=== PATIENT | female | born 1970 | race Caucasian/White ===

== ENCOUNTER 2017-08-05 11:46 | Emergency (ER) | payer BC ==
--- NOTE | 2017-08-05 12:27 | CPEKG ---
Heart Rate: 102 RR Interval: 588 P-R Interval: 144 QRSD Interval: 96 QT Interval: 368 QTC Interval: 480 P [place]: 64 QRS [place]: -28 T Wave [place]: 109 EKG Severity - ABNORMAL ECG - EKG Impression: SINUS TACHYCARDIA EKG Impression: PROBABLE LVH WITH SECONDARY REPOL ABNRM EKG Impression: ANTERIOR Q WAVES, POSSIBLY DUE TO LVH Electronically Signed By: Jacqueline Becerra 05-Aug-2017 20:44:44
[2017-08-05] MEDS ORDERED: TRANEXAMIC ACID 1,000 MG/10 ML VIAL ONE (12:37)
[2017-08-05] MEDS ORDERED: ASPIRIN 81 MG CHEWABLE TAB PO ONE (13:00)
--- NOTE | 2017-08-05 13:04 | EDPHY ---
H & P Stated Complaint: mid sternal cp x 2 days hx fenoral stents on plavix/anxiety Time Seen by Provider: 08/05/17 12:42 HPI/ROS: CHIEF COMPLAINT: Chest pain HISTORY OF PRESENT ILLNESS: This is a 46-year-old female with a history of bilateral femoral artery stents, placed in 2014 because of arterial occlusion. She is on Plavix as a result. She presents today with 2-3 days of substernal chest pressure. She describes it is a mild uncomfortable sensation. Today while at work she became short of breath after going up and down 8 stairs. She was sweaty and thought that she might collapse. She also feels that her thinking is somewhat foggy. In general, she states that she just does not"feel right". She smokes 1/2 pack of cigarettes daily. She has no history of hypertension or diabetes. She has a niece who at age 34 and reportedly had coronary artery disease; she in her sleep. Her mother at age 63 of unknown causes. REVIEW OF SYSTEMS: A ten point review of systems was performed and is negative with the exception of the items mentioned in the HPI and the following: She also reports diffuse joint pain which has been longstanding. Past medical history: Arterial occlusion Anxiety and depression Past surgical history: Bilateral femoral artery stents, partial hysterectomy, section. Family history: Mother at age 63 for unknown reasons but was reportedly in poor health with diabetes--and noncompliant with her medications. A niece who at age 34, possibly for causes related to coronary artery disease, but details unknown. 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 She smokes 1/2 pack of cigarettes daily. She does not use alcohol or illicit drugs. General Appearance: Alert. Vital signs reviewed. Intermittently tearful. Blood pressure 152/90. Eyes: Pupils equal and round, no conjunctival injection, no discharge. Anicteric. ENT, Mouth: Mucous membranes are moist, no oropharyngeal erythema or edema. Neck: No lymphadenopathy, supple. Respiratory: Lungs are clear to auscultation; no wheezes, rales, or rhonchi. Cardiovascular: Regular, mildly tachycardic; no murmur, rub, or gallop. Gastrointestinal: Abdomen is obese, soft and nontender, no masses or organomegaly, bowel sounds normal. Skin: Warm and dry, no rashes on exposed skin, normal color. Back: Nontender to palpation over the thoracolumbar spine. No CVAT. Extremities: No lower extremity edema, no calf tenderness or swelling. No joint swelling, warmth, or erythema. Neurological: Alert and oriented. Moving all four extremities easily and equally. Psychiatric: Tearful and anxious affect. - Personal History LMP (Females 10-55): Hysterectomy Current Tetanus/Diphtheria Vaccine: Yes - Medical/Surgical History Hx Asthma: No Hx Chronic Respiratory Disease: No Hx Diabetes: No Hx Cardiac Disease: No Hx Renal Disease: No Hx Cirrhosis: No Hx Alcoholism: No Hx HIV/AIDS: No Hx Splenectomy or Spleen Trauma: No Other PMH: hysterectomy/femoral stents - Social History Smoking Status: Current every day smoker Constitutional: Initial Vital Signs Temperature (C) 36.7 C 08/05/17 11:49 Heart Rate 99 08/05/17 11:49 Respiratory Rate 17 08/05/17 11:49 Blood Pressure 152/90 H 08/05/17 11:49 O2 Sat (%) 95 08/05/17 11:49 O2 Delivery Mode Room Air Allergies/Adverse Reactions: Penicillins Allergy (Verified 08/05/17 11:48) Home Medications: Medication Instructions Recorded Aspirin 325 mg (*) 08/05/17 Plavix 08/05/17 Venlafaxine Xr 08/05/17 Vistaril 08/05/17 Medical Decision Making - Diagnostics EKG Interpretation: EKG. Sinus tachycardia with a rate just over 100. LVH, Q-waves are noted anteriorly. No EKG for comparison. ED Course/Re-evaluation: Chest x-ray, EKG, labs reviewed. She has had this chest discomfort for at least 2 days and has a normal troponin. I doubt that it's origin is cardiac.She and I reviewed her HEART score. She has a score of 3, placing her in the low risk category with a less than 1.7% risk of a major acute coronary event within the next 6 weeks. She is reassured by this information and is comfortable following up with her primary care physician. No evidence of pulmonary infection. D-dimer is normal, making PE unlikely. She is not hypoxic. Throughout her stay in the emergency department she has been emotionally labile , crying on and off. She expresses some concern about her health but particularly states that she has diffuse joint pain. This is not a new problem for her. She has had ft and leg discomfort since her femoral artery stenting. There is no evidence today of vascular occlusion. Her extremities are warm and well perfused. She was taking Naprosyn for a but discontinued this medication out of concern that it might be interacting with the Plavix that she takes. The Naprosyn was working well for her. She did take one last night because she was having joint pain. In retrospect, she feels that the pain that she has been feeling in her mid chest is related to the diffuse joint pains that she has been experiencing. She was given a dose of Toradol in the emergency department, 15 mg IV. She understands that NSAIDs are not recommended in conjunction with Plavix. The Naprosyn was initially recommended by a physician that she had been seeing because of joint pain. She will discuss pain control with her primary care physician. I reviewed all of the laboratory and x-ray findings with her. I do not have a previous EKG for comparison. I made an effort to obtain one from the hospital in [place] but was unsuccessful. She does have evidence of LVH on her EKG today. Differential Diagnosis: Chest pain including but not limited to myocardial ischemia, pulmonary embolus, chest wall pain, pleural inflammation and pulmonary infectious causes. - Data Points Laboratory Results: Laboratory Results 08/05/17 12:45 08/05/17 12:45 Medications Given: Discontinued Medications Aspirin (Aspirin) 324 mg PO EDNOW ONE Stop: 08/05/17 13:01 Last Admin: 08/05/17 13:22 Dose: 324 mg Ketorolac Tromethamine (Toradol) 15 mg IVP EDNOW ONE Stop: 08/05/17 15:15 Last Admin: 08/05/17 15:29 Dose: 15 mg Departure - Departure Disposition: Home, Routine, Self-Care Clinical Impression: Chest pain Qualifiers: Chest pain type: other chest pain Qualified Code(s): R07.89 - Other chest pain ; R07.8 - Other chest pain Condition: Good Instructions: Chest Pain (ED), Hip Pain (ED) Additional Instructions: Follow up with your care provider, Dr. Haynes, in [facility]. Call his office on Tuesday and let him know that you were seen in the emergency department. Talk with him about your joint pain. If you have any new or concerning symptoms--worsening shortness of breath, persistent or changing chest pain--you should be re-evaluated. I am also giving you a referral to a local primary care physician in case you need it. Referrals: Jay Wolfe MD [Medical Doctor] - As per Instructions
[2017-08-05 13:06] LABS: PLATELET COUNT 375 10^3/uL (150-400)
[2017-08-05 13:15] LABS: INR 0.9 (0.83-1.16); PROTIME(PATIENT) 12.4 SEC (12.0-15.0)
[2017-08-05] MEDS ORDERED: KETOROLAC 30 MG/1 ML SDV IVP ONE (15:14)
[2017-08-05 15:44] VITALS: BP 155/95
== END 2017-08-05 15:44 | disposition home or self-care (01) ==
DX: R07.89 Other chest pain (principal); F17.200 Nicotine dependence, unspecified, uncomplicated
CPT/HCPCS: 96374; J1885